=== PATIENT | female | born 1980 | race Caucasian/White ===

== ENCOUNTER 2018-08-02 08:37 | Emergency (ER) | payer OTHER ==
--- OUTSIDE RECORDS SUMMARY | 2018-08-02 08:39 | XMS REPORT ---
:1980 [facility] Address [address] [place] [address] Dr. Vogel [address] [place] [id number] Care Team Providers Name Role Phone Unavailable Unavailable Unavailable Problems This patient has no known problems. Allergies, Adverse Reactions, Alerts This patient has no known allergies or adverse reactions. Medications This patient has no known medications.
[2018-08-02 09:57] LABS: Absolute Lymphocytes (CBC) 1.6 K/uL (0.7-4.9); Absolute Monocytes 0.4 K/uL (0.1-1.3); Absolute Neutrophil 3.4 K/uL (1.8-8.0); Basophils % 0.6 % (0-1.3); Eosinophils % 1.7 % (0-4.4); Hematocrit 43.2 % (36.0-45.0); Lymphocytes % 28.7 % (15.3-44.8); MPV 6.7 fL (7.6-11.3); Monocytes % 6.7 % (3.3-12.3); RBC Red Blood Cell Count 4.71 M/uL (3.86-4.86)
[2018-08-02 10:11] LABS: Potassium 3.9 mmol/L (3.5-5.1)
--- NOTE | 2018-08-02 10:41 | ER ---
Nurse's Notes [facility] Name: Agnes Coffey Age: 38 yrs Sex: Female : 1980 Arrival Date: 08/02/2018 Time: 08:38 Bed 16 Private MD: Dominick Mejia Diagnosis: Cough;Cough variant asthma Presentation: 08/02 08:40 Method Of Arrival: Ambulatory aa5 08:40 Presenting complaint: Patient states: "I've had a cough for 12 weeks and I've already aa5 taken several rounds of steroids and antibiotics and I still have it". Pt states "I do have an appointment with a Photogrammetric Tech". Pt reports chest pressure today and SOB. Pt denies coughing blood. Pt states "sometimes I cough up slime and sometimes is clear". Transition of care: patient was not received from another setting of care. Onset of symptoms was 2017. Risk Assessment: Do you want to hurt yourself or someone else? Patient reports no desire to harm self or others. Initial Sepsis Screen: Does the patient meet any 2 criteria? No. Patient's initial sepsis screen is negative. Does the patient have a suspected source of infection? No. Patient's initial sepsis screen is negative. Care prior to arrival: None. 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 - Social history:: Smoking status: Patient/guardian denies using tobacco. - Ebola Screening: : No symptoms or risks identified at this time. - Family history:: not pertinent. - Hospitalizations: : No recent hospitalization is reported. Screenin:21 Abuse screen: Denies threats or abuse. Denies injuries from another. Nutritional jl7 screening: No deficits noted. Tuberculosis screening: No symptoms or risk factors identified. Fall Risk IV access (20 points). Total Lin Fall Scale indicates No Risk (0-24 pts). Assessment: 09:45 General: Appears in no apparent distress. uncomfortable, Behavior is calm, cooperative. jl7 Pain: Denies pain. Pain does not radiate. Pain began 12 weeks ago. Neuro: Level of Consciousness is awake, alert, obeys commands, Oriented to person, place, time, situation. Cardiovascular: Patient's skin is warm and dry. Respiratory: Reports cough that is since x12 weeks Airway is patent Respiratory effort is even, unlabored, Respiratory pattern is regular, symmetrical. GI: No deficits noted. : No deficits noted. EENT: No signs and/or symptoms were reported regarding the EENT system. Derm: Skin is pink, warm \\T\\ dry. Musculoskeletal: No signs and/or symptoms reported regarding the musculoskeletal system. 10:21 Reassessment: Pt refuses CT at this time, states "I just want the x-ray first and we'll jl7 go from there." ERD notified at this time. 11:30 Reassessment: Patient is alert, oriented x 3, equal unlabored respirations, skin aa5 warm/dry/pink. Vital Signs: 08:42 BP 140 / 91; Pulse 106; Resp 18 S; Temp 99.0(O); Pulse Ox 100% on R/A; Weight 69.4 kg aa5 (R); Height 5 ft. 1 in. (154.94 cm) (R); Pain 8/10; 08:42 Body Mass Index 28.91 (69.40 kg, 154.94 cm) aa5 ED Course: 08:38 Patient arrived in ED. mr 08:39 Dominick Mejia MD is Private Physician. mr 08:40 Arm band placed on Patient placed in an exam room, on a stretcher. aa5 08:51 Triage completed. aa5 08:58 Ariel Merino MD is Attending Physician. rn 09:00 EKG done, by hydrological technical officer. reviewed by Ariel Merino MD. at1 09:12 Junior Whitaker RN is Primary Nurse. jl7 10:00 Initial lab(s) drawn, by ri, sent to lab. Flu and/or RSV swab sent to lab. Inserted jl7 saline lock: 22 gauge in left antecubital area, using aseptic technique. Blood collected. Patient maintains SpO2 saturation greater than 95% on room air. 10:21 Patient has correct armband on for positive identification. Placed in gown. Bed in low jl7 position. Call light in reach. Side rails up X 1. Pulse ox on. NIBP on. Warm blanket given. 10:26 Radiology exam delayed due to PT REFUSING UNTIL THEY SEE HER CHEST XRAY BECAUSE SHE IS sj GOING TO A PULMONOLGIST ON TUESDAY. 10:42 X-ray completed. Patient tolerated procedure well. Patient moved to radiology Patient jb2 moved back from radiology. 10:44 XRAY Chest Pa And Lat (2 Views) In Process Unspecified. EDMS 11:30 No provider procedures requiring assistance completed. Patient did not have IV access aa5 during this emergency room visit. Administered Medications: No medications were administered Outcome: 10:41 Discharge ordered by MD. rn 11:30 Discharged to home ambulatory, with family. aa5 11:30 Condition: stable 11:30 Discharge instructions given to patient, Instructed on discharge instructions, follow up and referral plans. Demonstrated understanding of instructions, follow-up care. 11:35 Patient left the ED. aa5 Signatures: Dispatcher [employer] EDCO Anatoly Cindy Chambers, Gavino jb2 Charity Perdue Roman, MD MD rn Calderon, Audri, RN RN aa5 Celestina Arceo, bottom finisher EKG Tat1 Junior Whitaker RN RN jl7 Corrections: (The following items were deleted from the chart) 08:38 Presenting complaint: Patient states: "I've had a cough for 12 weeks and I've aa5 already taken several rounds of steroids and antibiotics and I still have it". Pt states "I do have an appointment with a Photogrammetric Tech". Pt reports chest pressure today and SOB. Pt denies coughing blood. Pt states "sometimes I cough up slime and sometimes is clear" aa5 08:37 Method Of Arrival: Ambulatory aa5 aa5 08:38 Transition of care: patient was not received from another setting of care. aa5 aa5 08:38 Onset of symptoms was 2018 aa5 aa5 08:38 Risk Assessment: Do you want to hurt yourself or someone else? Patient reports no aa5 desire to harm self or others. aa5 08:38 Care prior to arrival: None. 5 5 08:38 Initial Sepsis Screen: Does the patient meet any 2 criteria? No. Patient's [facility] initial sepsis screen is negative. Does the patient have a suspected source of infection? No. Patient's initial sepsis screen is negative. 5 08:38 Acuity: YUE 3 [place] [id number]
--- NOTE | 2018-08-02 10:42 | EDPHYS ---
Physician Documentation [facility] Name: Agnes Coffey Age: 38 yrs Sex: Female : 1980 Arrival Date: 08/02/2018 Time: 08:38 Bed 16 Private MD: Dominick Mejia ED Physician Ariel Merino HPI: 08/02 10:29 This 38 yrs old Female presents to ER via Ambulatory with complaints of Chest rn Tightness, Cough, Breathing Difficulty. 10:29 The patient or guardian reports chest pain that is located primarily in the substernal rn area. The patient or guardian reports chest pain that is located primarily in the chest diffusely. The pain does not radiate. Associated signs and symptoms: Pertinent positives: cough, recent travel, shortness of breath, Pertinent negatives: lower extremity pain. The chest pain is described as a pressure. Duration: The patient or guardian reports multiple episodes, that are intermittent. Modifying factors: The symptoms are alleviated by nothing. the symptoms are aggravated by cough. Severity of pain: At its worst the pain was moderate in the emergency department the pain is unchanged. The patient has experienced similar episodes in the past. 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 . 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 - Social history:: Smoking status: Patient/guardian denies using tobacco. - Ebola Screening: : No symptoms or risks identified at this time. - Family history:: not pertinent. - Hospitalizations: : No recent hospitalization is reported. ROS: 10:29 Constitutional: Negative for fever, chills, and weight loss, Eyes: Negative for injury, rn pain, redness, and discharge, Cardiovascular: Negative for palpitations, and edema, Respiratory: Negative for wheezing, and pleuritic chest pain, Abdomen/GI: Negative for abdominal pain, nausea, vomiting, diarrhea, and constipation, MS/Extremity: Negative for injury and deformity, Skin: Negative for injury, rash, and discoloration, Neuro: Negative for headache, weakness, numbness, tingling, and seizure. Exam: 10:29 Constitutional: This is a well developed, well nourished patient who is awake, alert, rn and in no acute distress Head/Face: Normocephalic, atraumatic. Eyes: Pupils equal round and reactive to light, extra-ocular motions intact. Lids and lashes normal. Conjunctiva and sclera are non-icteric and not injected. Cornea within normal limits. Periorbital areas with no swelling, redness, or edema. ENT: MMM, no stridor Cardiovascular: tachycardic, regular, no murmur Respiratory: Lungs have equal breath sounds bilaterally, clear to auscultation. No increased work of breathing, no retractions or nasal flaring. Skin: Warm, dry with normal turgor. Normal color with no rashes, no lesions, and no evidence of cellulitis. MS/ Extremity: Pulses equal, no cyanosis. Neurovascular intact. Full, normal range of motion. Equal circumference. Neuro: Awake and alert, GCS 15, oriented to person, place, time, and situation. Vital Signs: 08:42 BP 140 / 91; Pulse 106; Resp 18 S; Temp 99.0(O); Pulse Ox 100% on R/A; Weight 69.4 kg aa5 (R); Height 5 ft. 1 in. (154.94 cm) (R); Pain 8/10; 08:42 Body Mass Index 28.91 (69.40 kg, 154.94 cm) aa5 MDM: 08:58 Patient medically screened. rn 10:40 Differential diagnosis: acute pericarditis, anxiety, esophagitis, gastroesophageal rn reflux disease (GERD), pleurisy, pneumonia, pneumothorax, pulmonary embolus. Data reviewed: vital signs, nurses notes, lab test result(s), EKG, radiologic studies, plain films, and as a result, I will discharge patient. Counseling: I had a detailed discussion with the patient and/or guardian regarding: the historical points, exam findings, and any diagnostic results supporting the discharge/admit diagnosis, lab results, radiology results, the need for outpatient follow up, to return to the emergency department if symptoms worsen or persist or if there are any questions or concerns that arise at home. Refusal of service: The patient/guardian displays adequate decision making capability and despite a detailed discussion of alternatives, benefits, risks, and consequences refuses: CT Scan. ED course: Pt refuses ct scan to eval for PE despite me explaining twice that with recent trip, sinus tachycardia, and no response to steroids/abx, patinet declines, states has appt with pulm on Tuesday and wants to wait.. 08/02 09:06 Order name: CBC with Diff; Complete Time: 10:26 rn 08/02 09:06 Order name: Basic Metabolic Panel; Complete Time: 10:26 rn 08/02 09:06 Order name: Flu; Complete Time: 10:26 rn 08/02 09:06 Order name: XRAY Chest Pa And Lat (2 Views) rn 08/02 10:15 Order name: EKG Electrocardiogram [facility] 08/02 09:06 Order name: IV Start; Complete Time: 10:23 rn Administered Medications: No medications were administered Disposition: 08/02/18 10:41 Discharged to Home. Impression: Cough, Cough variant asthma. - Condition is Stable. - Discharge Instructions: Asthma, Adult, Cough, Adult. - Medication Reconciliation Form, Thank You Letter, Antibiotic Education, Prescription Opioid Use form. - Follow up: Private Physician; When: As needed; Reason: Recheck today's complaints, Re-evaluation by your physician. - Problem is an ongoing problem. - Symptoms are unchanged. Signatures: Dispatcher [employer] EDMS Ariel Merino MD MD rn Calderon, Audri, RN RN aa5 Corrections: (The following items were deleted from the chart) 11:27 09:06 Urine Test ordered. sagar jl7 11:35 10:41 08/02/2018 10:41 Discharged to Home. Impression: Cough; Cough variant asthma. aa5 Condition is Stable. Forms are Medication Reconciliation Form, Thank You Letter, Antibiotic Education, Prescription Opioid Use. Follow up: Private Physician; When: As needed; Reason: Recheck today's complaints, Re-evaluation by your physician. Problem is an ongoing problem. Symptoms are unchanged. rn
--- NOTE | 2018-08-02 10:47 | RAD REPORT ---
EXAM DESCRIPTION: RAD - Chest Pa And Lat (2 Views) - 08/02/2018 10:42 am CLINICAL HISTORY: Persistent cough COMPARISON: None. TECHNIQUE: PA and lateral views of the chest were obtained. FINDINGS: The lungs are clear. No peribronchial thickening seen. Lung markings are not outside of t he normal range. Heart size is normal and central vasculature is within normal limits. No pleural ef fusion or pneumothorax seen. No acute bony finding noted. No aortic abnormality. IMPRESSION: No acute cardiopulmonary process.
--- NOTE | 2018-08-02 13:25 | EKG ---
Test Date: 2018-08-02 Test Time: 08:54:17 Boat Wrapper: MIKE MEASUREMENT RESULTS: Intervals: Rate: 111 [place]: 130 QRSD: 76 QT: 332 QTc: 451 [place]: P: 40 [place]: 130 QRS: 58 T: 31 INTERPRETIVE STATEMENTS: Sinus tachycardia Otherwise normal ECG No previous ECG available for comparison Electronically Signed On 08-02-18 13:24:45 POLICE AIDE by Jadiel Wesley
== END 2018-08-02 11:35 | disposition home or self-care (01) ==
LOC: ER 08:37
DX: J45.991 Cough variant asthma (principal); F41.9 Anxiety disorder, unspecified; Z88.1 Allergy status to other antibiotic agents
CPT/HCPCS: 36415; 71046; 80048; 85025; 87804; 93005; 99284

== ENCOUNTER 2022-03-08 11:19 | Emergency (ER) | payer BC, OTHER ==
--- OUTSIDE RECORDS SUMMARY | 2022-03-08 11:24 | XMS REPORT | Continuity of Care Document ---
:1980 Author Organization [facility] t Address [address] [place] [address] Care Team Providers Name Role Phone Sha Olivarez MD Primary Care Physician [phone] Dee Dee Pena Attending Clinician Unavailable Therapy, [facility] Attending Clinician Unavailable Kevin Lenz MD Attending Clinician KEVIN LENZ Attending Clinician Unavailable Doctor Unassigned, [place] Attending Clinician Unavailable Sha Olivarez MD Attending Clinician SHA OLIVAREZ Attending Clinician Unavailable Provider, [facility] Attending Clinician Unavailable Jessica Pineda Attending Clinician JESSICA GAMBOA Attending Clinician Unavailable Neha Adame Attending Clinician Dee Dee Pena Admitting Clinician Unavailable Payers Payer Name Policy Type Policy Number Effective Date Expiration Date Adelita [facility] [id number] 2018 00:00:00 Problems Condition Condition Condition Status Onset Resolution Last Treating Co mments Source Name Details Category Date Date Treatment Clinician Date Gross Gross Disease Active [facility] hematuria hematuria 3-18 ity of 00:00: [place] 00 Medical Branch Anxiety Anxiety Disease Active [facility] 6-27 ity of 00:00: [place] 00 [facility] Acne Acne Disease Active [facility] vulgaris vulgaris 6-27 ity of 00:00: [place] 00 Medical Branch Acne Acne Disease Active [facility] vulgaris vulgaris 6-27 ity of 00:00: [place] 00 [facility] Branch 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 [facility] intermitte intermitte 1-25 it y of nt asthma nt asthma 00:[place] [facility] Knee pain, Knee pain, Disease Active 2014-07 U nivers chronic, chronic, 1-25 ity of left left 00:00: [place] 00 Medical Branch Nonintract Nonintract Disease Active 2014-07 U nivers able able 1-25 ity of migraine migraine 00:00: [place] 00 Medical Branch Gastroesop Gastroesop Disease Active 2014-07 U nivers hageal hageal 1-25 ity of reflux reflux 00:00: [place] disease disease 00 Medical without without Branch esophagiti esophagiti s s Allergies, Adverse Reactions, Alerts Allergy Allergy Status Severity Reaction(s) Onset Inactive Treating Comm ents Source Name Type Date Date Clinician Amoxicil Propensi Active Itching Unive rs tamie ty to 1-25 ity of adverse 00:00: [place] reaction 00 Medical s Branch AMOXICIL DRUG Active ITCHING Univers TAMIE INGREDI 1-25 ity of 00:00: [place] 00 Medical Branch Cefuroxi Propensi Active Unknown - 2014-07 Uni vers me ty to See comments 1-17 ity of Axetil adverse 00:00: [place] reaction 00 Medical s Branch CEFUROXI DRUG Active Unknown-Cmnt 2014-07 Un guero ME INGREDI 1-17 ity of AXETIL 00:00: [place] 00 [facility] Branch cefuroxi DA Active [place] [facility]- [facility] [place] Cephalex DA Active [place] RASH [facility] Mon[facility]ydr 00:[facility]: [facility] [place] Social History Social Habit Start Date Stop Date Quantity Comments Source Exposure to Yes [facility] SARS-CoV-2 (event) Medica l Branch Alcohol intake 2020-08-18 2020-08-18 0 /d [facility] 00:00:00 00:00:00 Medical Branch Tobacco use and 2015-06-18 2015-06-18 Never used [facility] exposure 00:00:00 00:00:00 Medical Branch Sex [birth year] [facility] 00:00:00 00:00:00 Medical Branch Smoking Status Start Date Stop Date Source Never smoker [facility] Branch Medications Ordered Filled Start Stop Current Ordering Indication Dosage Frequency Signature Comments Components Source Medication Medication Date Date Medication? Clinician (SIG) Name Name brittani 2021- No [id number] 500mg 500 mg, IV Univers (XEVUDY) 08-22 Infusion, ity o f 500 mg in 16:30: 16:01 ONCE, [place] NaCl 0.9% 00 :00 Administer Medi maddi (NS) 50 mL over 30 Branch MINI-BAG Minutes, On 08/22/21 at 1030, For [address] able 24 hours refrigerat ed or 6 hours at room temperatur e including transporta tion and infusion time.
ketorolac Yes [id number] 10mg Take 1 U nivers 10 mg 3-18 tablet by ity of tablet 00:00: mouth [place] 00 every 6 Medical (six) Branch hours as needed (pain). ketorolac Yes [id number] 10mg Take 1 U nivers 10 mg 3-18 tablet by ity of tablet 00:00: mouth [place] 00 every 6 Medical (six) Branch hours as needed (pain). ketorolac 2020-0 Yes [id number] 10mg Take 1 U nivers 10 mg 3-18 tablet by ity of tablet 00:00: mouth [place] 00 every 6 Medical (six) Branch hours as needed (pain). ketorolac 2020-0 Yes [id number] 10mg Take 1 U nivers 10 mg 3-18 tablet by ity of tablet 00:00: mouth [place] 00 every 6 Medical (six) Branch hours as needed (pain). ketorolac 2020-0 Yes [id number] 10mg Take 1 U nivers 10 mg 3-18 tablet by ity of tablet 00:00: mouth [place] 00 every 6 Medical (six) Branch hours as needed (pain). ketorolac 2020-0 Yes 10mg Take 1 U nivers 10 mg 3-18 tablet by ity of tablet 00:00: mouth [place] 00 every 6 Medical (six) Branch hours as needed (pain). ketorolac 2020-0 Yes [id number] 10mg Take 1 U nivers 10 mg 3-18 tablet by ity of tablet 00:00: mouth [place] 00 every 6 Medical (six) Branch hours as needed (pain). ketorolac 2020-0 Yes [id number] 10mg Take 1 U nivers 10 mg 3-18 tablet by ity of tablet 00:00: mouth [place] 00 every 6 Medical (six) Branch hours as needed (pain). ketorolac 2020-0 Yes 10mg Take 1 U nivers 10 mg 3-18 tablet by ity of tablet 00:00: mouth [place] 00 every 6 Medical (six) Branch hours as needed (pain). dicyclomine 2020- No 20mg 20 mg, Uni vers (BENTYL) 08-01 Intramuscu ity of injection 22:45: 10:44 lar, ONCE [place] 20 mg 00 :00 NOW, 1 Medical dose, Fri Branch 08/01/20 at 1645, ZACARIAS metoclopram 2020- No 10mg 10 mg, Uni vers pk HCl 08-01 Slow IV ity of (REGLAN) 21:20: 21:21 Push, [place] injection 00 :00 ONCE, 1 Medical 10 mg dose, Fri Branch 08/01/20 at 1530, ZACARIAS iohexol 2020- No 120mL 120 mL, Unive rs (OMNIPAQUE 08-01 Intravenou it y of 350 21:15: 20:56 s, ONCE, 1 [place] BULK-150 00 :00 dose, Fri Medica l mL) 08/01/20 at Branch injection 1515, 120 mL Routine ondansetron 2020- No 4mg 4 mg, Slow Univers (ZOFRAN 08-01 IV Push, ity of (PF)) 21:15: 20:24 ONCE, 1 [place] injection 4 00 :00 dose, Fri Med ical mg 08/01/20 at Branch 1515, ZACARIAS ketorolac 2020-0 2020- No 30mg 30 mg, Unive rs (TORADOL) 08-01 Slow IV ity of injection 21:15: 20:25 Push, [place] 30 mg 00 :00 ONCE, 1 Medical dose, Fri Branch 08/01/20 at 1515, ZACARIAS
Fa culty member approving Restricted medication : EMERGENCY ROOM, NaCl 0.9% 2020- No 1000mL at 999 Uni vers (NS) bolus 08-0108 mL/hr, ity of infusion 20:15: 22:30 1,000 mL, [place] as 1,000 mL 00 :00 IV Medical Infusion, Branch ONCE, 1 dose, 08/01/20 at 1415, ZACARIAS dicyclomine 2020-0 Yes [id number] 20mg Take 1 Univers 20 mg 1-08 tablet by ity of tablet 00:00: mouth 4 [place] 00 (four) Medical times Branch daily as needed for Abdominal pain. ondansetron 2020-0 Yes [id number] 4mg Take 1 Univers (ZOFRAN 1-08 tablet by ity of ODT) 4 mg 00:00: mouth [place] disintegrat 00 every 8 Medic al ing tablet (eight) Branch hours as needed for Nausea and Vomiting (N/V). ketorolac 2020-0 Yes [id number] 10mg Take 1 U nivers 10 mg 1-08 tablet by ity of tablet 00:00: mouth [place] 00 every 6 Medical (six) Branch hours as needed for Pain (scale 7-10). dicyclomine 2020-0 Yes [id number] 20mg Take 1 Univers 20 mg 1-08 tablet by ity of tablet 00:00: mouth 4 [place] 00 (four) Medical times Branch daily as needed for Abdominal pain. ondansetron 2021-0 Yes [id number] 4mg Take 1 Univers (ZOFRAN 1-08 tablet by ity of ODT) 4 mg 00:00: mouth [place] disintegrat 00 every 8 Medic al ing tablet (eight) Branch hours as needed for Nausea and Vomiting (N/V). ketorolac 2021-0 Yes [id number] 10mg Take 1 U nivers 10 mg 1-08 tablet by ity of tablet 00:00: mouth [place] 00 every 6 Medical (six) Branch hours as needed for Pain (scale 7-10). dicyclomine 2021-0 Yes [id number] 20mg Take 1 Univers 20 mg 1-08 tablet by ity of tablet 00:00: mouth 4 [place] 00 (four) Medical times Branch daily as needed for Abdominal pain. ondansetron 2021-0 Yes [id number] 4mg Take 1 Univers (ZOFRAN 1-08 tablet by ity of ODT) 4 mg 00:00: mouth [place] disintegrat 00 every 8 Medic al ing tablet (eight) Branch hours as needed for Nausea and Vomiting (N/V). ketorolac 2021-0 Yes [id number] 10mg Take 1 U nivers 10 mg 1-08 tablet by ity of tablet 00:00: mouth [place] 00 every 6 Medical (six) Branch hours as needed for Pain (scale 7-10). dicyclomine 2021-0 Yes [id number] 20mg Take 1 Univers 20 mg 1-08 tablet by ity of tablet 00:00: mouth 4 [place] 00 (four) Medical times Branch daily as needed for Abdominal pain. ondansetron 2021-0 Yes [id number] 4mg Take 1 Univers (ZOFRAN 1-08 tablet by ity of ODT) 4 mg 00:00: mouth [place] disintegrat 00 every 8 Medic al ing tablet (eight) Branch hours as needed for Nausea and Vomiting (N/V). ketorolac 2021-0 Yes [id number] 10mg Take 1 U nivers 10 mg 1-08 tablet by ity of tablet 00:00: mouth [place] 00 every 6 Medical (six) Branch hours as needed for Pain (scale 7-10). dicyclomine 2021-0 Yes [id number] 20mg Take 1 Univers 20 mg 1-08 tablet by ity of tablet 00:00: mouth 4 [place] 00 (four) Medical times Branch daily as needed for Abdominal pain. ondansetron 2021-0 Yes [id number] 4mg Take 1 Univers (ZOFRAN 1-08 tablet by ity of ODT) 4 mg 00:00: mouth [place] disintegrat 00 every 8 Medic al ing tablet (eight) Branch hours as needed for Nausea and Vomiting (N/V). dicyclomine 2021-0 Yes [id number] 20mg Take 1 Univers 20 mg 1-08 tablet by ity of tablet 00:00: mouth 4 [place] 00 (four) Medical times Branch daily as needed for Abdominal pain. ondansetron 2021-0 Yes [id number] 4mg Take 1 Univers (ZOFRAN 1-08 tablet by ity of ODT) 4 mg 00:00: mouth [place] disintegrat 00 every 8 Medic al ing tablet (eight) Branch hours as needed for Nausea and Vomiting (N/V). dicyclomine 2021-0 Yes [id number] 20mg Take 1 Univers 20 mg 1-08 tablet by ity of tablet 00:00: mouth 4 [place] 00 (four) Medical times Branch daily as needed for Abdominal pain. ondansetron 2021-0 Yes [id number] 4mg Take 1 Univers (ZOFRAN 1-08 tablet by ity of ODT) 4 mg 00:00: mouth [place] disintegrat 00 every 8 Medic al ing tablet (eight) Branch hours as needed for Nausea and Vomiting (N/V). dicyclomine 1-0 Yes [id number] 20mg Take 1 Univers 20 mg 1-08 tablet by ity of tablet 00:00: mouth 4 [place] 00 (four) Medical times Branch daily as needed for Abdominal pain. ondansetron 2021-0 Yes [id number] 4mg Take 1 Univers (ZOFRAN 1-08 tablet by ity of ODT) 4 mg 00:00: mouth [place] disintegrat 00 every 8 Medic al ing tablet (eight) Branch hours as needed for Nausea and Vomiting (N/V). dicyclomine 2021-0 Yes [id number] 20mg Take 1 [facility] 20 mg 1-08 tablet by ity of tablet 00:00: mouth 4 [place] 00 (four) Medical times Branch daily as needed for Abdominal pain. ondansetron 2021-0 Yes [id number] 4mg Take 1 Univers (ZOFRAN 1-08 tablet by ity of ODT) 4 mg 00:00: mouth [place] disintegrat 00 every 8 Medic al ing tablet (eight) Branch hours as needed for Nausea and Vomiting (N/V). dicyclomine 2021-0 Yes [id number] 20mg Take 1 Univers 20 mg 1-08 tablet by ity of tablet 00:00: mouth 4 [place] 00 (four) Medical times Branch daily as needed for Abdominal pain. ondansetron 2021-0 Yes [id number] 4mg Take 1 Univers (ZOFRAN 1-08 tablet by ity of ODT) 4 mg 00:00: mouth [place] disintegrat 00 every 8 Medic al ing tablet (eight) Branch hours as needed for Nausea and Vomiting (N/V). dicyclomine 2021-0 Yes [id number] 20mg Take 1 Univers 20 mg 1-08 tablet by ity of tablet 00:00: mouth 4 [place] 00 (four) Medical times Branch daily as needed for Abdominal pain. ondansetron 2021-0 Yes [id number] 4mg Take 1 Univers (ZOFRAN 1-08 tablet by ity of ODT) 4 mg 00:00: mouth [place] disintegrat 00 every 8 Medic al ing tablet (eight) Branch hours as needed for Nausea and Vomiting (N/V). dicyclomine 2021-0 Yes [id number] 20mg Take 1 Univers 20 mg 1-08 tablet by ity of tablet 00:00: mouth 4 [place] 00 (four) Medical times Branch daily as needed for Abdominal pain. ondansetron 2021-0 Yes [id number] 4mg Take 1 Univers (ZOFRAN 1-08 tablet by ity of ODT) 4 mg 00:00: mouth [place] disintegrat 00 every 8 Medic al ing tablet (eight) Branch hours as needed for Nausea and Vomiting (N/V). dicyclomine 2021-0 Yes [id number] 20mg Take 1 Univers 20 mg 1-08 tablet by ity of tablet 00:00: mouth 4 [place] 00 (four) Medical times Branch daily as needed for Abdominal pain. ondansetron 2021-0 Yes [id number] 4mg Take 1 Univers (ZOFRAN 1-08 tablet by ity of ODT) 4 mg 00:00: mouth [place] disintegrat 00 every 8 Medic al ing tablet (eight) Branch hours as needed for Nausea and Vomiting (N/V). dicyclomine 2021-0 Yes [id number] 20mg Take 1 Univers 20 mg 1-08 tablet by ity of tablet 00:00: mouth 4 [place] 00 (four) Medical times Branch daily as needed for Abdominal pain. ondansetron 2021-0 Yes [id number] 4mg Take 1 Univers (ZOFRAN 1-08 tablet by ity of ODT) 4 mg 00:00: mouth [place] disintegrat 00 every 8 Medic al ing tablet (eight) Branch hours as needed for Nausea and Vomiting (N/V). ketorolac 2020-0 Yes [id number] 10mg Take 1 U nivers 10 mg 1-08 tablet by ity of tablet 00:00: [facility] 00 every 6 Medical (six) Branch hours as needed for Pain (scale 7-10). ketorolac 0 2021- No [id number] 10mg Take 1 Univers 10 mg 1-08 03-18 tablet by ity of tablet 00:00: 00:00 mouth [place] 00 :00 every 6 Medical (six) Branch hours as needed for Pain (scale 7-10). DULOXETINE 2020-0 Yes [id number] 60mg TAKE 1 Univers 60 mg 7-29 CAPSULE BY ity of capsule 00:00: [facility] DAILY Medical Branch DULOXETINE 2020-0 Yes [id number] 60mg TAKE 1 Univers 60 mg 7-29 CAPSULE BY ity of capsule 00:00: [facility] DAILY Medical Branch DULOXETINE 2020-0 Yes [id number] 60mg TAKE 1 Univers 60 mg 7-29 CAPSULE BY ity of capsule 00:00: [facility] DAILY Medical Branch DULOXETINE 2020-0 Yes [id number] 60mg TAKE 1 Univers 60 mg 7-29 CAPSULE BY ity of capsule 00:00: [facility] DAILY Medical Branch DULOXETINE 2020-0 Yes [id number] 60mg TAKE 1 Univers 60 mg 7-29 CAPSULE BY ity of capsule 00:00: [facility] DAILY Medical Branch DULOXETINE 2020-0 Yes [id number] 60mg TAKE 1 Univers 60 mg 7-29 CAPSULE BY ity of capsule 00:00: [facility] DAILY Medical Branch DULOXETINE 2020-0 Yes [id number] 60mg TAKE 1 Univers 60 mg 7-29 CAPSULE BY ity of capsule 00:00: [facility] DAILY Medical Branch DULOXETINE 2020-0 Yes [id number] 60mg TAKE 1 Univers 60 mg 7-29 CAPSULE BY ity of capsule 00:00: [facility] DAILY Medical Branch DULOXETINE 2020-0 Yes [id number] 60mg TAKE 1 Univers 60 mg 7-29 CAPSULE BY ity of capsule 00:00: [facility] DAILY Medical Branch DULOXETINE 2020-0 Yes [id number] 60mg TAKE 1 Univers 60 mg 7-29 CAPSULE BY ity of capsule 00:00: MOUTH [place] 00 DAILY Medical Branch DULOXETINE 2020-0 Yes [id number] 60mg TAKE 1 Univers 60 mg 7-29 CAPSULE BY ity of capsule 00:00: MOUTH [place] 00 DAILY Medical Branch DULOXETINE 2020-0 Yes [id number] 60mg TAKE 1 Univers 60 mg 7-29 CAPSULE BY ity of capsule 00:00: MOUTH [place] 00 DAILY Medical Branch DULOXETINE 2020-0 Yes [id number] 60mg TAKE 1 Univers 60 mg 7-29 CAPSULE BY ity of capsule 00:00: MOUTH [place] 00 DAILY Medical Branch DULOXETINE 2020-0 Yes [id number] 60mg TAKE 1 Univers 60 mg 7-29 CAPSULE BY ity of capsule 00:00: MOUTH [place] 00 DAILY Medical Branch DULOXETINE 2020-0 Yes [id number] 60mg TAKE 1 Univers 60 mg 7-29 CAPSULE BY ity of capsule 00:00: MOUTH [place] 00 DAILY Medical Branch DULOXETINE 2020-0 Yes [id number] 60mg TAKE 1 Univers 60 mg 7-29 CAPSULE BY ity of capsule 00:00: MOUTH [place] 00 DAILY Medical Branch DULOXETINE 2020-0 Yes [id number] 60mg TAKE 1 Univers 60 mg 7-29 CAPSULE BY ity of capsule 00:00: MOUTH [place] 00 DAILY Medical Branch DULOXETINE 2020-0 Yes [id number] 60mg TAKE 1 Univers 60 mg 7-29 CAPSULE BY ity of capsule 00:00: MOUTH [place] 00 DAILY Medical Branch topiramate 2018- Yes [id number] 150mg Take 150 Univers (QUDEXY XR) 2-20 mg by ity of 150 mg CSpX 00:00: mouth [place] 00 daily. Medical Branch BUPROPION 2018- Yes [id number] TAKE 1 U nivers SR 150 mg 2-20 TABLET BY ity o f SR tablet 00:00: MOUTH [place] 00 TWICE Medical DAILY Branch hydrocortis 2018- Yes [id number] Insert Univers one 2-20 into ity of (PROCTOSOL 00:00: rectum 2 [place] [facility] HC) 2.5 % 00 (two) Medical rectal times Branch cream daily. topiramate 2018-07 Yes [id number] 150mg Take 150 Univers (QUDEXY XR) 2-20 mg by ity of 150 mg CSpX 00:00: mouth [place] 00 daily. Medical Branch BUPROPION 2018-07 Yes [id number] TAKE 1 U nivers SR 150 mg 2-20 TABLET BY ity o f SR tablet 00:00: MOUTH [place] 00 TWICE Medical DAILY Branch hydrocortis 2018-07 Yes [id number] Insert Univers one 2-20 into ity of (PROCTOSOL 00:00: rectum 2 [place] [facility] HC) 2.5 % 00 (two) Medical rectal times Branch cream daily. topiramate 2018-07 Yes [id number] 150mg Take 150 Univers (QUDEXY XR) 2-20 mg by ity of 150 mg CSpX 00:00: mouth [place] 00 daily. Medical Branch BUPROPION 2018-07 Yes [id number] TAKE 1 U nivers SR 150 mg 2-20 TABLET BY ity o f SR tablet 00:00: MOUTH [place] 00 TWICE Medical DAILY Branch hydrocortis 2018-07 Yes [id number] Insert Univers one 2-20 into ity of (PROCTOSOL 00:00: rectum 2 [place] HC) 2.5 % 00 (two) Medical rectal times Branch cream daily. topiramate 2018-07 Yes [id number] 150mg Take 150 Univers (QUDEXY XR) 2-20 mg by ity of 150 mg CSpX 00:00: mouth [place] 00 daily. Medical Branch BUPROPION 2018-07 Yes [id number] TAKE 1 U nivers SR 150 mg 2-20 TABLET BY ity o f SR tablet 00:00: MOUTH [place] 00 TWICE Medical DAILY Branch hydrocortis 2018-07 Yes [id number] Insert Univers one 2-20 into ity of (PROCTOSOL 00:00: rectum 2 [place] [facility] HC) 2.5 % 00 (two) Medical rectal times Branch cream daily. topiramate 2018-07 Yes [id number] 150mg Take 150 Univers (QUDEXY XR) 2-20 mg by ity of 150 mg CSpX 00:00: mouth [place] 00 daily. Medical Branch BUPROPION 2018-07 Yes [id number] TAKE 1 U nivers SR 150 mg 2-20 TABLET BY ity o f SR tablet 00:00: MOUTH [place] 00 TWICE Medical DAILY Branch hydrocortis 2018-07 Yes [id number] Insert Univers one 2-20 into ity of (PROCTOSOL 00:00: rectum 2 [place] HC) 2.5 % 00 (two) Medical rectal times Branch cream daily. topiramate 2018-07 Yes [id number] 150mg Take 150 Univers (QUDEXY XR) 2-20 mg by ity of 150 mg CSpX 00:00: mouth [place] 00 daily. Medical Branch BUPROPION 2018-07 Yes [id number] TAKE 1 U nivers SR 150 mg 2-20 TABLET BY ity o f SR tablet 00:00: MOUTH [place] 00 TWICE Medical DAILY Branch hydrocortis 2018-07 Yes [id number] Insert [facility] one 2-20 into ity of (PROCTOSOL 00:00: rectum 2 [place] HC) 2.5 % 00 (two) Medical rectal times Branch cream daily. topiramate 2018-07 Yes [id number] 150mg Take 150 Univers (QUDEXY XR) 2-20 mg by ity of 150 mg CSpX 00:00: mouth [place] 00 daily. Medical Branch BUPROPION 2018-07 Yes [id number] TAKE 1 U nivers SR 150 mg 2-20 TABLET BY ity o f SR tablet 00:00: MOUTH [place] 00 TWICE Medical DAILY Branch hydrocortis 2018-07 Yes [id number] Insert [facility] one 2-20 into ity of (PROCTOSOL 00:00: rectum 2 [place] HC) 2.5 % 00 (two) Medical rectal times Branch cream daily. topiramate 2018-07 Yes [id number] 150mg Take 150 Univers (QUDEXY XR) 2-20 mg by ity of 150 mg CSpX 00:00: mouth [place] 00 daily. Medical Branch BUPROPION 2018-07 Yes [id number] TAKE 1 U nivers SR 150 mg 2-20 TABLET BY ity o f SR tablet 00:00: MOUTH [place] 00 TWICE Medical DAILY Branch hydrocortis 2018-07 Yes [id number] Insert [facility] one 2-20 into ity of (PROCTOSOL 00:00: rectum 2 [place] HC) 2.5 % 00 (two) Medical rectal times Branch cream daily. topiramate 2018-07 Yes [id number] 150mg Take 150 Univers (QUDEXY XR) 2-20 mg by ity of 150 mg CSpX 00:00: mouth [place] 00 daily. Medical Branch BUPROPION 2018-07 Yes [id number] TAKE 1 U nivers SR 150 mg 2-20 TABLET BY ity o f SR tablet 00:00: MOUTH [place] 00 TWICE Medical DAILY Branch hydrocortis 2018-07 Yes [id number] Insert [facility] one 2-20 into ity of (PROCTOSOL 00:00: rectum 2 [place] [facility] HC) 2.5 % 00 (two) Medical rectal times Branch cream daily. topiramate 2018-07 Yes [id number] 150mg Take 150 Univers (QUDEXY XR) 2-20 mg by ity of 150 mg CSpX 00:00: mouth [place] 00 daily. Medical Branch BUPROPION 2018-07 Yes [id number] TAKE 1 U nivers SR 150 mg 2-20 TABLET BY ity o f SR tablet 00:00: MOUTH [place] 00 TWICE Medical DAILY Branch hydrocortis 2018-07 Yes [id number] Insert [facility] one 2-20 into ity of (PROCTOSOL 00:00: rectum 2 [place] HC) 2.5 % 00 (two) Medical rectal times Branch cream daily. topiramate 2018-07 Yes [id number] 150mg Take 150 Univers (QUDEXY XR) 2-20 mg by ity of 150 mg CSpX 00:00: mouth [place] 00 daily. Medical Branch BUPROPION 2018-07 Yes [id number] TAKE 1 U nivers SR 150 mg 2-20 TABLET BY ity o f SR tablet 00:00: MOUTH [place] 00 TWICE Medical DAILY Branch hydrocortis 2018-07 Yes [id number] Insert [facility] one 2-20 into ity of (PROCTOSOL 00:00: rectum 2 [place] HC) 2.5 % 00 (two) Medical rectal times Branch cream daily. topiramate 2018-07 Yes [id number] 150mg Take 150 Univers (QUDEXY XR) 2-20 mg by ity of 150 mg CSpX 00:00: mouth [place] 00 daily. Medical Branch BUPROPION 2018-07 Yes [id number] TAKE 1 U nivers SR 150 mg 2-20 TABLET BY ity o f SR tablet 00:00: MOUTH [place] 00 TWICE Medical DAILY Branch hydrocortis 2018-07 Yes [id number] Insert [facility] one 2-20 into ity of (PROCTOSOL 00:00: rectum 2 [place] HC) 2.5 % 00 (two) Medical rectal times Branch cream daily. topiramate 2018-07 Yes [id number] 150mg Take 150 Univers (QUDEXY XR) 2-20 mg by ity of 150 mg CSpX 00:00: mouth [place] 00 daily. Medical Branch BUPROPION 2018-07 Yes [id number] TAKE 1 U nivers SR 150 mg 2-20 TABLET BY ity o f SR tablet 00:00: MOUTH [place] 00 TWICE Medical DAILY Branch hydrocortis 2018-07 Yes [id number] Insert [facility] one 2-20 into ity of (PROCTOSOL 00:00: rectum 2 [place] HC) 2.5 % 00 (two) Medical rectal times Branch cream daily. topiramate 2018-07 Yes [id number] 150mg Take 150 Univers (QUDEXY XR) 2-20 mg by ity of 150 mg CSpX 00:00: mouth [place] 00 daily. Medical Branch BUPROPION 2018-07 Yes [id number] TAKE 1 U nivers SR 150 mg 2-20 TABLET BY ity o f SR tablet 00:00: MOUTH [place] 00 TWICE Medical DAILY Branch hydrocortis 2018-07 Yes [id number] Insert [facility] one 2-20 into ity of (PROCTOSOL 00:00: rectum 2 [place] HC) 2.5 % 00 (two) Medical rectal times Branch cream daily. topiramate 2018-07 Yes [id number] 150mg Take 150 Univers (QUDEXY XR) 2-20 mg by ity of 150 mg CSpX 00:00: mouth [place] 00 daily. Medical Branch BUPROPION 2018-07 Yes [id number] TAKE 1 U nivers SR 150 mg 2-20 TABLET BY ity o f SR tablet 00:00: MOUTH [place] 00 TWICE Medical DAILY Branch hydrocortis 2018-07 Yes [id number] Insert [facility] one 2-20 into ity of (PROCTOSOL 00:00: rectum 2 [place] [facility] HC) 2.5 % 00 (two) Medical rectal times Branch cream daily. topiramate 2018-07 Yes [id number] 150mg Take 150 Univers (QUDEXY XR) 2-20 mg by ity of 150 mg CSpX 00:00: mouth [place] 00 daily. Medical Branch BUPROPION 2018-07 Yes [id number] TAKE 1 U nivers SR 150 mg 2-20 TABLET BY ity o f SR tablet 00:00: MOUTH [place] 00 TWICE Medical DAILY Branch hydrocortis 2018-07 Yes [id number] Insert [facility] one 2-20 into ity of (PROCTOSOL 00:00: rectum 2 [place] [facility] HC) 2.5 % 00 (two) Medical rectal times Branch cream daily. topiramate 2018-07 Yes [id number] 150mg Take 150 Univers (QUDEXY XR) 2-20 mg by ity of 150 mg CSpX 00:00: mouth [place] 00 daily. Medical Branch BUPROPION 2018-07 Yes [id number] TAKE 1 U nivers SR 150 mg 2-20 TABLET BY ity o f SR tablet 00:00: MOUTH [place] 00 TWICE Medical DAILY Branch hydrocortis 2018-07 Yes [id number] Insert [facility] one 2-20 into ity of (PROCTOSOL 00:00: rectum 2 [place] [facility] HC) 2.5 % 00 (two) Medical rectal times Branch cream daily. topiramate 2018-07 Yes [id number] 150mg Take 150 Univers (QUDEXY XR) 2-20 mg by ity of 150 mg CSpX 00:00: mouth [place] 00 daily. Medical Branch BUPROPION 2018-07 Yes [id number] TAKE 1 U nivers SR 150 mg 2-20 TABLET BY ity o f SR tablet 00:00: MOUTH [place] 00 TWICE Medical DAILY Branch hydrocortis 2018-07 Yes [id number] Insert [facility] one 2-20 into ity of (PROCTOSOL 00:00: rectum 2 [place] [facility] HC) 2.5 % 00 (two) Medical rectal times Branch cream daily. DULoxetine Yes [id number] 60mg Take 1 U nivers 60 mg 7- capsule by ity of capsule 00:00: mouth [place] 00 daily. Medical Branch DULoxetine 2020- No [id number] 60mg Take 1 Univers 60 mg 7-07 31- capsule by ity of capsule 00:00: 00:00 mouth [place] 00 :00 daily. Medical Branch albuterol 2017-07 Yes [id number] 2{puff} Inhale 2 Univers 90 2-07 Puffs ity of mcg/actuati 00:00: every 6 [facility] as on inhaler 00 (six) Medical hours as Branch needed for Wheezing or Shortness of Breath. albuterol 2017-07 Yes [id number] 2{puff} Inhale 2 Univers 90 2-07 Puffs ity of mcg/actuati 00:00: every 6 Jalen as on inhaler 00 (six) Medical hours as Branch needed for Wheezing or Shortness of Breath. albuterol 2017-07 Yes [id number] 2{puff} Inhale 2 Univers 90 2-07 Puffs ity of mcg/actuati 00:00: every 6 Jalen as on inhaler 00 (six) Medical hours as Branch needed for Wheezing or Shortness of Breath. albuterol 2017-07 Yes [id number] 2{puff} Inhale 2 Univers 90 2-07 Puffs ity of mcg/actuati 00:00: every 6 Jalen as on inhaler 00 (six) Medical hours as Branch needed for Wheezing or Shortness of Breath. albuterol 2017-07 Yes [id number] 2{puff} Inhale 2 Univers 90 2-07 Puffs ity of mcg/actuati 00:00: every 6 Jalen as on inhaler 00 (six) Medical hours as Branch needed for Wheezing or Shortness of Breath. albuterol 2017-07 Yes [id number] 2{puff} Inhale 2 Univers 90 2-07 Puffs ity of mcg/actuati 00:00: every 6 Jalen as on inhaler 00 (six) Medical hours as Branch needed for Wheezing or Shortness of Breath. albuterol 2017-07 Yes [id number] 2{puff} Inhale 2 Univers 90 2-07 Puffs ity of mcg/actuati 00:00: every 6 Jalen as on inhaler 00 (six) Medical hours as Branch needed for Wheezing or Shortness of Breath. albuterol 2017-07 Yes [id number] 2{puff} Inhale 2 Univers 90 2-07 Puffs ity of mcg/actuati 00:00: every 6 Jalen as on inhaler 00 (six) Medical hours as Branch needed for Wheezing or Shortness of Breath. albuterol 2017-07 Yes [id number] 2{puff} Inhale 2 Univers 90 2-07 Puffs ity of mcg/actuati 00:00: every 6 Jalen as on inhaler 00 (six) Medical hours as Branch needed for Wheezing or Shortness of Breath. albuterol 2017-07 Yes [id number] 2{puff} Inhale 2 Univers 90 2-07 Puffs ity of mcg/actuati 00:00: every 6 Jalen as on inhaler 00 (six) Medical hours as Branch needed for Wheezing or Shortness of Breath. albuterol 2017-07 Yes [id number] 2{puff} Inhale 2 Univers 90 2-07 Puffs ity of mcg/actuati 00:00: every 6 Jalen as on inhaler 00 (six) Medical hours as Branch needed for Wheezing or Shortness of Breath. albuterol 2017-07 Yes [id number] 2{puff} Inhale 2 Univers 90 2-07 Puffs ity of mcg/actuati 00:00: every 6 Jalen as on inhaler 00 (six) Medical hours as Branch needed for Wheezing or Shortness of Breath. albuterol 2017-07 Yes [id number] 2{puff} Inhale 2 Univers 90 2-07 Puffs ity of mcg/actuati 00:00: every 6 Jalen as on inhaler 00 (six) Medical hours as Branch needed for Wheezing or Shortness of Breath. albuterol 2017-07 Yes [id number] 2{puff} Inhale 2 Univers 90 2-07 Puffs ity of mcg/actuati 00:00: every 6 Jalen as on inhaler 00 (six) Medical hours as Branch needed for Wheezing or Shortness of Breath. albuterol 2017-07 Yes [id number] 2{puff} Inhale 2 Univers 90 2-07 Puffs ity of mcg/actuati 00:00: every 6 Jalen as on inhaler 00 (six) Medical hours as Branch needed for Wheezing or Shortness of Breath. albuterol 2017-07 Yes [id number] 2{puff} Inhale 2 Univers 90 2-07 Puffs ity of mcg/actuati 00:00: every 6 Jalen as on inhaler 00 (six) Medical hours as Branch needed for Wheezing or Shortness of Breath. albuterol 2017-07 Yes [id number] 2{puff} Inhale 2 Univers 90 2-07 Puffs ity of mcg/actuati 00:00: every 6 Jalen as on inhaler 00 (six) Medical hours as Branch needed for Wheezing or Shortness of Breath. albuterol 2017-07 Yes [id number] 2{puff} Inhale 2 Univers 90 2-07 Puffs ity of mcg/actuati 00:00: every 6 Jalen as on inhaler 00 (six) Medical hours as Branch needed for Wheezing or Shortness of Breath. albuterol 2017-07 Yes [id number] 2{puff} Inhale 2 Univers 90 2-07 Puffs ity of mcg/actuati 00:00: every 6 Jalen as on inhaler 00 (six) Medical hours as Branch needed for Wheezing or Shortness of Breath. QUDEXY XR 2017- Yes 150mg Take 150 Uni vers 150 mg CSpX 3-14 mg by ity of 00:00: mouth [place] 00 daily. Medical Branch Vital Signs Vital Name Observation Time Observation Value Comments Source Systolic blood 2021-08-22 17:01:00 127 mm[Hg] Univer sity of pressure [place] [facility] Diastolic blood 2021-08-22 17:01:00 87 mm[Hg] Unive rsity of pressure [place] [facility] Heart rate 2021-08-22 17:01:00 88 /min [facility] [place] [facility] Body temperature 2021-08-22 17:01:00 36.39 [place] Univ ers[facility] [place] [facility] Respiratory rate 2021-08-22 17:01:00 17 /min Univ [facility] [place] [facility] Oxygen saturation in 2021-08-22 17:01:00 88 /min University of Arterial blood by [place] [employer] [facility]addi Pulse oximetry Branch Body height 2021-08-22 15:15:00 154.9 cm [facility] [place] [facility] Body weight 2021-08-22 15:15:00 83.915 kg [facility] [place] [facility] BMI 2021-08-22 15:15:00 34.96 kg/m2 [facility] [place] [facility] Systolic blood 2020-08-18 22:50:00 129 mm[Hg] Univer sity of pressure [place] [facility] Diastolic blood 2020-08-18 22:50:00 88 mm[Hg] Unive rsity of pressure [place] [facility] Heart rate 2020-08-18 22:47:00 97 /min [facility] [place] [facility] Body temperature 2020-08-18 22:47:00 37.06 [place] Univ [facility] [place] [facility] Respiratory rate 2020-08-18 22:47:00 18 /min Univ [facility] [place] [facility] Body height 2020-08-18 22:47:00 156.2 cm [facility] [place] [facility] Body weight 2020-08-18 22:47:00 81.647 kg [facility] [place] [facility] BMI 2020-08-18 22:47:00 33.46 kg/m2 [facility] [place] [facility] Oxygen saturation in 2020-08-18 22:47:00 98 /min University of Arterial blood by [place] [employer]add[employer] Pulse oximetry Branch Systolic blood 2020-08-01 22:32:00 135 mm[Hg] Univer sity of pressure [place] [facility] Diastolic blood 2020-08-01 22:32:00 88 mm[Hg] [facility] of pressure [facility] [place] [facility] Heart rate 2020-08-01 22:32:00 97 /min [facility] Respiratory rate 2020-08-01 22:32:00 20 /min [facility] Oxygen saturation in 2020-08-01 22:32:00 97 /min [facility] Arterial blood by [facility] Pulse oximetry [place] Body temperature 2020-08-01 19:06:00 36.94 [place] [facility] Body weight 2020-08-01 19:06:00 83.915 kg [facility] BMI 2020-08-01 19:06:00 34.96 kg/m2 [facility] Procedures Procedure Date / Time Performing Clinician Source Performed [id number] CONSENT 2021-08-22 06:01:00 Doctor Unassigned, [facility] [place] [facility] REFERRAL- 2021-02-03 05:01:00 Doctor Unassigned, [facility] REQUEST/RESPONSE [place] [facility] INSURANCE CORRESPONDENCE 2021-01-20 05:01:00 Doctor Unassigned, [facility] [place] [facility] POCT GRP A STREP 2020-08-18 00:00:00 Jessica Gamboa [facility] (MOLECULAR) [facility] CT ABDOMEN PELVIS W 2020-08-01 21:00:10 Neha Nicolas [facility] CONTRAST Medical Branch LIPASE 2020-08-01 19:47:00 Neha Nicolas [facility] HEPATIC FUNCTION PANEL 2020-08-01 19:47:00 Neha Nicolas [facility] ([id number]) (ALB,T.PRO,BILI Medical [place] T,BU/BC,ALT,AST,ALK PHOS) BASIC METABOLIC PANEL 2020-08-01 19:47:00 Neha Nicolas [facility] (NA, K, CL, CO2, GLUCOSE, Medica l Branch BUN, CREATININE, CA) CBC WITH DIFF 2020-08-01 19:47:00 Neha Nicolas [facility] URINALYSIS 2020-08-01 19:47:00 Neha Nicolas [facility] POCT TEST 2020-08-01 19:47:00 Neha Nicolas [facility] NOTICE OF PRIVACY 2020-08-01 18:54:18 Doctor Austin [facility] PRACTICES [place] [facility] CONSENT/REFUSAL FOR 2020-08-01 18:51:59 Doctor Austin [facility] DIAGNOSIS AND TREATMENT [place] [facility] EXTERNAL PROVIDER RECORDS 2019-04-03 05:01:00 Doctor Austin, [facility] [place] [facility] Encounters Start End Encounter Admission Attending Care Care Encounter Source Date/Time Date/Time Type Type Clinicians Facility Department ID 2021-05-23 Emergency [facility] [id number] [facility] 2022-02-08 Outpatient KEENA Ayala RAKESH [id number] [facility] 12:00:00 12:00:00 Dee Dee 95 [facility] [place] 2022-02-01 2022-02-01 Outpatient AARON Pena [facility] RAKESH [id number] [facility] 12:00:00 12:00:00 Dee Dee 13 [facility] [place] 2021-08-22 2021-08-22 Nurse Therapy, Adc Covid Infusion [facility] [id number] Univers 09:00:00 10:00:00 Visit Kevin Lenz [id number] ity [facility] [place] [phone] [facility] 053 Branch 2021-08-22 2021-08-22 Outpatient R [facility] [id number] Univers 09:00:00 09:00:00 [id number] ity [facility] 2021-08-22 2021-08-22 Outpatient R PROMISE [facility] [id number] Univers 09:00:00 09:00:00 KEVIN rudd [facility] 2021-08-22 2021-08-22 Orders Doctor WARD 1.2.840.114 [id number] Univers 00:00:00 00:00:00 Only UnassDELON dunn [id number] [facility] 4.2.7.2.686 [place] as [phone] [address] 2021-02-10 2021-02-10 Telephone [facility] 1.2.840.114 [id number] Univers 00:00:00 00:00:00 [facility] [id number] it y of Ramesh Zeng 4.2.7.2.686 Jalen as Professio [phone] [facility] 044 [facility] One 2021-02-03 2021-02-03 Orders Doctor ED 1.2.840.114 [id number] Univers 00:00:00 00:00:00 Only Unassigned, DELON [id number] ity of [place] [facility] 4.2.7.2.686 Jalen as [phone] [address] 2021-01-20 2021-01-20 Orders Doctor ED 1.2.840.114 [id number] Univers 00:00:00 00:00:00 Only Unassigned, DELON [id number] ity of [place] [facility] 4.2.7.2.686 Jalen as [phone] [address] 2021-01-16 2021-01-16 Telephone [facility] 1.2.840.114 [id number] Univers 00:00:00 00:00:00 [facility] [id number] it y of Ramesh Zeng 4.2.7.2.686 [place] as Professio [phone] [address] One 2020-10-10 2020-10-10 Outpatient Amanda OLIVAREZ [facility] [id number] Univers 16:15:00 16:15:00 SHA [id number] ity [facility] 2020-10-10 2020-10-10 Outpatient Amanda OLIVAREZ [facility] [id number] Univers 16:15:00 16:15:00 SHA rudd [facility] 2020-10-09 2020-10-09 Outpatient Amanda OLIVAREZ [facility] [id number] Univers 08:00:00 08:00:00 SHA [id number] ity [facility] 2020-10-09 2020-10-09 Outpatient R SHER [facility] [id number] Univers 08:00:00 08:00:00 SHA ity of [facility] [place] [facility] 2020-10-09 2020-10-09 [facility] 1.2.840.114 [id number] Univers 06:48:17 07:03:17 ne Visit [facility] [id number] i ty of Ramesh Zeng 4.2.7.2.686 Jalen as Professio [phone] [address] Office [facility] One 2020-10-08 2020-10-08 [facility] 1.2.840.114 [id number] Univers 00:00:00 00:00:00 [facility] [id number] it y of Ramesh Zeng 4.2.7.2.686 [place] as Professio [phone] [address] One 2020-08-18 2020-08-18 Urgent Provider, [facility] Urgent Care [facility] 1.2.840.114 [id number] [facility] 16:18:30 17:45:28 Care Cooper [facility] [id number] ity of [place] 4.2.7.2.686 [place] as Professio [phone] [address] One 2020-08-18 2020-08-18 Outpatient [facility] [id number] Univers 17:00:00 17:00:00 [id number] ity of [facility] [place] [facility] 2020-08-18 2020-08-18 Outpatient Amanda GAMBOA [facility] [id number] Univers 17:00:00 17:00:00 JESSICA ity of [facility] [place] [facility] 2020-08-18 2020-08-18 Letter Doctor WARD 1.2.840.114 [id number] Univers 00:00:00 00:00:00 (Out) Unassigned, DELON 350.1.13.10 ity of [place] [facility] 4.2.7.2.686 [place] as [phone] [address] 2020-08-18 2020-08-18 Letter Cooper [facility] 1.2.840.114 [id number] Univers 00:00:00 00:00:00 ([facility] 350.1.13.10 [facility] y of [place] 4.2.7.2.686 [place] as Professio [phone] [address] One 2020-08-01 2020-08-[address] [facility] 1.2.840.114 [id number] Univers 13:07:00 16:40:00 Neha Azucena 350.1.13.10 i ty of [place] [phone] [facility] 084 [place] 2020-08-01 2020-08-01 Orders Doctor ED 1.2.840.114 [id number] Univers 00:00:00 00:00:00 Only Unassigned, DELON 350.1.13.10 ity of [place] [facility] 4.2.7.2.686 Jalen as [phone] [facility] 009 [place] 2020-07-13 2020-07-13 [facility] 1.2.840.114 [id number] Univers 00:00:00 00:00:00 [facility] [id number] it y of [place] 4.2.7.2.686 [place] as Professio [phone] [address] One 2020-07-01 2020-07-01 [facility] 1.2.840.114 [id number] Univers 00:00:00 00:00:00 [facility] 350.1.13.10 it y of [place] 4.2.7.2.686 [place] as Professio [phone] [address] 2020-02-20 2020-02-20 [facility] 1.2.840.114 [id number] Univers 00:00:00 00:00:00 [facility] 350.1.13.10 it y of [place] 4.2.7.2.686 [place] as Professio [phone] [address] One 2019-04-03 2019-04-03 Orders Doctor ED 1.2.840.114 [id number] Univers 00:00:00 00:00:00 Only Unassigned, DELON 350.1.13.10 ity of [place] [facility] 4.2.7.2.686 [facility] as [phone] [place] [address] Branch Results Test Description Test Time Test Comments Results Result Comments Source POCT GRP A STREP (MOLECULAR) 2020-08-18 23:02:00 Test Item Value Reference Range Interpretation Comme nts POCT GP A STREP (test code = 84455-6) negative Negative - Negat howie [facility] A[facility] PELVIS W [id number] 21:30:[address] abnormality in the abdomen or pelvis. Normal appendix. Hepatic steatosis. Status post cholecystectomy and hysterectomy. Preliminary Report Dictated by Resident: José Miguel Ríos. Feliciano Lopze MD., have reviewed this study and agree with theabove report.EXAM: CT ABDOMEN AND P SHASHANK WITH CONTRAST HISTORY: 40-year-old female with "nausea, vomiting, right lower quadrantpain". COMPARISON: None. DOSE: 497mGycm. TECHNIQUE AND FINDINGS: Contiguous axial imaging from the level of the lungbases through the pubic symphysis was performed after the uncomplicatedadministration of 120 cc of intravenous Omnipaque contrast. Coronal andsagittal reconstructions were obtained. ?Auto mA and/or iterativereconstruction were used to reduce radiation dose. FINDINGS: LOWER THORAX: The lungs bases are clear. No cardiomegaly. HEPATOBILIARY: Normal contour. Diffuse hypoattenuation of the liverparenchyma. No focal liver lesion. No intrahepatic biliary ductal dilation. ?The common bile duct is normal incaliber. Cholecystectomy. SPLEEN: No splenomegaly. PANCREAS: No ductal dilation or mass. ADRENALGLANDS: No adrenal nodule. KIDNEYS: No hydronephrosis, stone, or mass. PERITONEUM AND RETROPERITONEUM: No free air or fluid. LYMPH NODES: No enlarged lymph nodes in the abdomen or pelvis. GI TRACT: No dilation or wall thickening. Normal appendix (6:54-63). PELVIS/BLADDER: Hysterectomy. Subcentimeter structures in the bilateralovaries represent follicles. The urinary bladder is mildly distendedwithoutwall thickening. VESSELS: Unremarkable. BONES AND SOFT TISSUES: No suspicious lytic or sclerotic bony lesions. [facility], Radiant Results Inft User - 08/01/2020 3:31 PM CSTEXAM: CT ABDOMEN AND PELVIS WITH CONTRASTHISTORY: 40-year-old female with "nausea, vomiting, right lower quadrantpain".COMPARISON: None.DOSE: 497mGycm.TECHNIQUE AND FINDINGS: Contiguous axial imaging from the level of the lungbases through the pubic symphysis was performed after the uncomplicatedadministration of 120 cc of intravenous Omnipaque contrast. Coronal andsagittal reconstructions were obtained. Auto mA and/or iterativereconstruction were used to reduce radiation dose.FINDINGS:LOWER THORAX: The lungs bases are clear. No cardi omegaly.HEPATOBILIARY: Normal contour. Diffuse hypoattenuation of the liverparenchyma. No focal liver lesion.No intrahepatic biliary ductal dilation. The common bile duct is normal incaliber.Cholecystectomy.SPLEEN: No splenomegaly.PANCREAS: No ductal dilation or mass.ADRENAL GLANDS: No adrenal nodule.KIDNEYS: No hydronephrosis, stone, or mass.PERITONEUM AND RETROPERITONEUM: No free air or fluid.LYMPHNODES: No enlarged lymph nodes in the abdomen or pelvis.GI TRACT: No dilation or wall thickening. Normal appendix (6:54-63).PELVIS/BLADDER: Hysterectomy. Subcentimeter structures in the bilateralovaries represent follicles. The urinary bladder is mildly distendedwithout wall thickening.VESSELS: Unremarkable.BONES AND SOFT TISSUES: No suspicious lytic or sclerotic bony lesions.IMPRESSIONNo acute CT abnormality in the abdomen or pelvis.Normal appendix.Hepatic steatosis.Status post cholecystectomy and hysterectomy.Preliminary Report Dictated by Resident: José Miguel Ríos.I, Feliciano Mcbride MD., have reviewed this study and agree with theabove report.[facility] Met[facility] (NA, K, CL, CO2, GLUCOSE, BUN, CREATININE, CA)2020-08-01 20:21:00 Test Item Value Reference Range Interpretation Comments NA (test code = 139 mmol/L 135-145 4141893774) K (test code = 3.5 mmol/L 3.5-5 0557352048) CL (test code = 104 mmol/L 98-108 3901504743) CO2 TOTAL (test code = 26 mmol/L 23-31 3356559039) AGAP (test code = 2-16 9811844006) BUN (test code = 11 mg/dL 7-23 7331913562) GLUCOSE (test code = 127 mg/dL 70-110 H 6654507892) CREATININE (test code = 0.55 mg/dL 0.5-1.04 3445523022) CALCIUM (test code = 9.1 mg/dL 8.6-10.6 2039292728) eGFR Calculation mL/min/1.73m2 (Non-) (test code = 2428244639) eGFR Calculation mL/min/1.73m2 () (test code = 3873615688) JEREMIE (test code = JEREMIE) Association of Glomerular Filtration Rate (GFR) and Staging of Kidney Disease* + --+ --+ ------+| GFR (mL/min/1.73 m2) ?| With Kidney Damage ?| ?Without Kidney Damage+ --------+ --------+ +| ?>90 ?| ?Stage one ?| ? Normal ?+ ---+ ---+ -------+| ?60-89 ?| ?Stage two ?| ? Decreased GFR ? + --+ --+ ------+| ?30-59 ?| ?Stage three ?| ? Stage three ? + --+ --+ ------+| ?15-29 ?| ?Stage four ? | ? Stage four ?+ ---+ ---+ -------+| ?<15 (or dialysis) ? ?| ?Stage five ? | ? Stage five ?+ ---+ ---+ -------+ *Each stage assumes the associated GFR level has been in effect for at least three months. ?Stages 1 to 5, with or without kidney disease, indicate chronic kidney disease. Notes: Determination of stages one and two (with eGFR >59mL/min/1.73 m2) requires estimation of kidney damage for at least three months as defined by structural or functional abnormalities of the kidney, manifested by either:Pathological abnormalities or Markers of kidney damage (including abnormalities in the composition of the blood or urine or abnormalities in imaging tests). Lab Interpretation Abnormal (test code = 62227-3) [facility] [id number] 20:14:00 Test Item Value Reference Range Interpretation Comments APPEARANCE (test code = Clear Clear 3013614944) COLOR (test code = Yellow Yellow 4993006696) PH (test code = 4.8-8.0 2027933067) SP GRAVITY (test code = 1.003-1.030 4240845742) GLU U QUAL (test code = Normal Normal 8826154832) BLOOD (test code = 1+ Negative A 3192162730) KETONES (test code = Negative Negative 5007284888) PROTEIN (test code = Negative Negative 2887-8) UROBILIN (test code = Normal Normal 7631540041) BILIRUBIN (test code = Negative Negative 7548184348) NITRITE (test code = Negative Negative 5230539798) LEUK NII (test code = Negative Negative 6996157083) RBC/HPF (test code = See_Comment [Autom ated message] 7504271925) The system [employer] generated this result transmitted ref erence range: 0 - 3 HP F. The reference range was not used to int erpret this result as normal/abnormal . WBC/HPF (test code = See_Comment [Autom ated message] 2479848638) The system [employer] generated this result transmitted ref erence range: 0 - 5 HP F. The reference range was not used to int erpret this result as normal/abnormal . BACTERIA (test code = Negative Negative 0197437270) MUCOUS (test code = Slight Negative LPF A 2542090543) SQ EPITH (test code = HPF 1793559834) Lab Interpretation (test Abnormal code = 26913-3) [facility] (ALB, T.PRO, BILI T, BU/BC, ALT, AST, ALK PHOS)2020-08-01 20:11:00 Test Item Value Reference Range Interpretation Comments TOTAL BILI (test code = 1425888604) 0.4 mg/dL 0.1-1.1 BILI UNCON (test code = 3412224904) 0.3 mg/dL 0.1-1.1 BILI CONJ (test code = 8519198886) 0.0 mg/dL 0-0.3 T PROTEIN (test code = 7896343552) 7.4 g/dL 6.3-8.2 ALBUMIN (test code = 7294011930) 4.4 g/dL 3.5-5 ALK PHOS (test code = 1433743686) 58 U/L 34-122 ALTv (test code = 1742-6) 33 U/L 5-35 AST(SGOT) (test code = 4861533982) 27 U/L 13-40 Lab Interpretation (test code = Normal 16491-1) [facility] [id number] 20:11:00 Test Item Value Reference Range Interpretation Comments LIPASE (test code = 1983995985) 96 U/L 0-220 Lab Interpretation (test code = Normal 83556-0) [facility] Falls[facility] with [id number] 19:57:00 Test Item Value Reference Range Interpretation Comments WBC (test code = See_Comment [Automated 9290-2) message] The sy stem which generated this result transmitted reference range : 4.30 - 11.10 10*3/?L. The reference range was not used to interpret this result as normal/abnormal . RBC (test code = See_Comment [Automated 789-8) message] The sy stem which generated this result transmitted reference range : 3.93 - 5.25 10*6/?L. The reference range was not used to interpret this result as normal/abnormal . HGB (test code = 12.9 g/dL 11.6-15 718-7) HCT (test code = 37.9 % 35.7-45.2 4544-3) MCV (test code = 90.0 fL 80.6-95.5 787-2) MCH (test code = 30.6 pg 25.9-32.8 785-6) MCHC (test code = 34.0 g/dL 31.6-35.1 786-4) RDW-SD (test code = 40.2 fL 39-49.9 85391-4) RDW-CV (test code = 12.4 % 12-15.5 788-0) PLT (test code = See_Comment [Automated 777-3) message] The sy stem which generated this result transmitted reference range : 166 - 358 10*3/ ?L. The reference r roc was not used to interpret this result as normal/abnormal . MPV (test code = 8.4 fL 9.5-12.9 L 41035-4) NRBC/100 WBC (test See_Comment [Automat ed code = 6716360227) message] The system which generated this result transmitted reference range : 0.0 - 10.0 /100 WBCs. The refer ence range was not u sed to interpret th is result as normal/abnormal . NRBC x10^3 (test code <0.01 See_Comment [Auto mated = 8985064554) message] The s ystem which generated this result transmitted reference range : 10*3/?L. The reference range was not used to interpret this result as normal/abnormal . GRAN MAT (NEUT) % 68.3 % (test code = 770-8) IMM GRAN % (test code 1.00 % = 1096498854) LYMPH % (test code = 22.2 % 736-9) MONO % (test code = 5.9 % 5905-5) EOS % (test code = 2.1 % 713-8) BASO % (test code = 0.5 % 706-2) GRAN MAT x10^3(ANC) 4.99 10*3/uL 1.88-7.09 (test code = 7683917215) IMM GRAN x10^3 (test 0.07 10*3/uL 0-0.06 H code = 3554066889) LYMPH x10^3 (test code 1.62 10*3/uL 1.32-3.29 = 731-0) MONO x10^3 (test code 0.43 10*3/uL 0.33-0.92 = 742-7) EOS x10^3 (test code = 0.15 10*3/uL 0.03-0.39 711-2) BASO x10^3 (test code 0.04 10*3/uL 0.01-0.07 = 704-7) Lab Interpretation Abnormal (test code = 15313-4) [facility] [facility] [id number] 19:50:00 Test Item Value Reference Range Interpretation Comments POCT PREG (test code = 1605) Negative On board controls acceptable with Yes C Line (test code = 3574) POCT PREG LOT # (test code = 3575) [id number] POCT PREG TEST DATE (test 03/24/22 code = 3576) Lab Interpretation (test code = Normal 03224-5) [facility]
[2022-03-08] MEDS ORDERED: MORPHINE 2 MG/ML SYR ONE (11:59)
[2022-03-08] MEDS ORDERED: NA CHLORIDE 0.9% 1,000 ML ONE (11:59)
[2022-03-08] MEDS ORDERED: ONDANSETRON 4 MG/2 ML VIAL ONE (11:59)
[2022-03-08 12:26] LABS: Absolute Lymphocytes (CBC) 1.9 K/uL (0.7-4.9); Hematocrit 38.4 % (36.0-45.0); Lymphocytes % 21.4 % (15.3-44.8); MCV 89.8 fL (80-100); MPV 6.8 fL (7.6-11.3); RBC Red Blood Cell Count 4.27 M/uL (3.86-4.86)
[2022-03-08 12:28] LABS: Urine Blood 1+ (Negative); Urine Glucose Negative (Negative); Urine Protein Negative (Negative); Urine Specific Gravity >=1.030 (1.005-1.030); Urine pH 5.5 (5.0-7.0)
[2022-03-08 12:41] LABS: Albumin 3.7 g/dL (3.4-5.0); Bilirubin Total 0.4 mg/dL (0.2-1.0); Potassium 3.8 mmol/L (3.5-5.1); Protein, Total 7.6 g/dL (6.4-8.2)
--- NOTE | 2022-03-08 13:25 | RAD REPORT ---
EXAM DESCRIPTION: CT - Abdomen Pelvis W Contrast - 03/08/2022 1:11 pm CLINICAL HISTORY: Abdominal pain COMPARISON: 2018 TECHNIQUE: Computed axial tomography of the abdomen pelvis was obtained. 100 cc Isovue-300 was admin istered intravenously. Oral contrast was not requested which limits evaluation of bowel and appendix All CT scans are performed using dose optimization technique as appropriate and may include automated exposure control or mA/KV adjustment according to patient size. FINDINGS: Fatty liver. Cholecystectomy Spleen, pancreas, adrenal and kidneys appear unremarkable. There is no evidence of diverticulitis. Hysterectomy. Normal appendix 2.8 left ovarian cyst without significant free fluid IMPRESSION: 2.8 left ovarian cyst without significant free fluid
[2022-03-08] MEDS ORDERED: PROMETHAZINE INJ 25 MG/ML AMP ONE (13:49)
[2022-03-08] MEDS ORDERED: KETOROLAC 30 MG/ML INJ ONE (13:50)
--- NOTE | 2022-03-08 14:14 | ER ---
Nurse's Notes [facility] Name: Agnes Coffey Age: 41 yrs Sex: Female : 1980 Arrival Date: 03/08/2022 Time: 11:[address] Private MD: Anirudh Love B Diagnosis: Abdominal pain, unspecified Presentation: 03/08 11:39 Chief complaint: Patient states: R sided abdominal pain, N/V that started this morning. ph Coronavirus screen: Vaccine status: Patient reports receiving the 2nd dose of the covid vaccine. Ebola Screen: No symptoms or risks identified at this time. Initial Sepsis Screen: Does the patient meet any 2 criteria? No. Patient's initial sepsis screen is negative. Does the patient have a suspected source of infection? No. Patient's initial sepsis screen is negative. Risk Assessment: Do you want to hurt yourself or someone else? Patient reports no desire to harm self or others. Onset of symptoms was March 08, 2022. 11:39 Method Of Arrival: Wheelchair ph 11:39 Acuity: YUE 3 ph Triage Assessment: 11:41 General: Appears in no apparent distress. uncomfortable, Behavior is calm, cooperative, ph appropriate for age. Pain: Complains of pain in right upper quadrant and right lower quadrant. GI: Reports lower abdominal pain, nausea, vomiting. 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 - Social history:: Smoking status: Patient denies any tobacco usage or history of. Screenin:48 Abuse screen: Denies threats or abuse. Nutritional screening: No deficits noted. kr3 Tuberculosis screening: No symptoms or risk factors identified. Fall Risk IV access (20 points). Total Lin Fall Scale indicates No Risk (0-24 pts). Assessment: 13:09 Reassessment: No changes from previously documented assessment. Patient and/or family ll1 updated on plan of care and expected duration. Pain level reassessed. 13:24 Reassessment: No changes from previously documented assessment. Patient and/or family ll1 updated on plan of care and expected duration. Pain level reassessed. Patient is alert, oriented x 3, equal unlabored respirations, skin warm/dry/pink. 14:30 Reassessment: No changes from previously documented assessment. Patient and/or family kr3 updated on plan of care and expected duration. Pain level reassessed. 14:49 GI: Bowel sounds present X 4 quads. Abd is soft Abdomen is tender to palpation in right kr3 lower quadrant. Vital Signs: 11:39 BP 129 / 89; Pulse 98; Resp 18; Temp 97.2; Pulse Ox 96% on R/A; Weight 83.91 kg; Height ph 5 ft. 1 in. (154.94 cm); 14:30 BP 138 / 87; Pulse 93; Resp 18; Pulse Ox 99% on R/A; kr3 11:39 Body Mass Index 34.96 (83.91 kg, 154.94 cm) ph ED Course: 11:21 Patient arrived in ED. mr 11:21 Anirudh Love MD is Private Physician. mr 11:36 [facility]. jl9 11:36 Martin Motta DO is Attending Physician. jl9 11:38 Estefania Izaguirre RN is Primary Nurse. kr3 11:40 Triage completed. ph 11:41 Arm band placed on Patient placed in an exam room. ph 11:49 Bed in low position. Call light in reach. Side rails up X 1. kr3 11:59 Inserted saline lock: 22 gauge in left antecubital area, using aseptic technique. Blood kr3 collected. 13:05 Inserted saline lock: 22 gauge in right antecubital area, using aseptic technique. ll1 13:12 CT Abd/Pelvis - IV Contrast Only In Process Unspecified. EDMS 14:49 No provider procedures requiring assistance completed. IV discontinued, intact, kr3 bleeding controlled, No redness/swelling at site. Pressure dressing applied. Administered Medications: 12:05 Drug: Zofran (Ondansetron) 4 mg Route: IVP; Site: left antecubital; kr3 13:02 Follow up: Response: No adverse reaction kr3 12:10 Drug: morphine 2 mg Route: IVP; Infused Over: 4 mins; Site: left antecubital; kr3 13:02 Follow up: Response: No adverse reaction; RASS: Alert and Calm (0) kr3 12:15 Drug: NS 0.9% 1000 ml Route: IV; Rate: 1 bolus; Site: left antecubital; kr3 14:51 Follow up: Response: No adverse reaction; IV Status: Completed infusion kr3 13:51 Drug: Phenergan (promethazine) 12.5 mg Route: IVP; Site: right upper arm; kr3 14:47 Follow up: Response: No adverse reaction kr3 13:55 Drug: Ketorolac 30 mg Route: IVP; Site: right upper arm; kr3 14:47 Follow up: Response: No adverse reaction kr3 Medication: 14:50 VIS not applicable for this client. kr3 Outcome: 14:14 Discharge ordered by . [email or web address] 14:47 Patient left the ED. kr3 14:49 Discharged to home ambulatory. kr3 14:49 Condition: stable 14:49 Discharge instructions given to patient, Instructed on discharge instructions, follow up and referral plans. medication usage, Demonstrated understanding of instructions, follow-up care, medications, Prescriptions given X 2. Signatures: Dispatcher [employer] [facility] Cindy LedbetterYvette RN RN Alex Blevins RN RN [email or web address] Ney Mckenna9 Estefania Izaguirre RN RN kr3 Corrections: (The following items were deleted from the chart) 12:31 12:31 Inserted saline lock: 22 gauge in left antecubital area, using aseptic technique. kr3 Blood collected. kr3 14:49 14:48 Bed in low position. Call light in reach. Side rails up X 1. kr3 kr3
--- NOTE | 2022-03-08 14:15 | EDPHYS ---
Physician Documentation [facility] Name: Agnes Coffey Age: 41 yrs Sex: Female : 1980 Arrival Date: 03/08/2022 Time: 11:[address] Private MD: Anirudh Love B ED Physician Martin Motta HPI: 03/08 11:47 This 41 yrs old Female presents to ER via Wheelchair with complaints of jl9 Abdominal Pain. 11:47 The patient presents with abdominal pain right lower quadrant. Onset: The jl9 symptoms/episode began/occurred this morning. The symptoms do not radiate. Associated signs and symptoms: Pertinent positives: Pertinent negatives: nausea, vomiting, and diarrhea. The symptoms are described as crampy. Modifying factors: The symptoms are alleviated by nothing, the symptoms are aggravated by nothing. Severity of pain: in the emergency department the pain is a 5 / 10. INFORMATICS SPEC: 14:49 LMP N/A - Hysterectomy kr3 Historical: - Allergies: 11:40 Amoxicillin; ph 11:40 Ceftin; ph 11:40 oral steroids; ph - PMHx: 11:40 ACNE; Allergic rhinitis; Anxiety; incontinence.; Migraines; ph - PSHx: 11:40 Total abdominal hysterectomy; ph - Immunization history:: Adult Immunizations up to date. - Social history:: Smoking status: Patient denies any tobacco usage or history of. ROS: 11:48 Constitutional: Negative for fever, chills, and weight loss, Eyes: Negative for injury, jl9 pain, redness, and discharge, ENT: Negative for injury, pain, and discharge, Neck: Negative for injury, pain, and swelling, Cardiovascular: Negative for chest pain, palpitations, and edema, Respiratory: Negative for shortness of breath, cough, wheezing, and pleuritic chest pain. 11:48 Back: Negative for injury and pain, : Negative for injury, bleeding, discharge, and swelling, MS/Extremity: Negative for injury and deformity, Skin: Negative for injury, rash, and discoloration, Neuro: Negative for headache, weakness, numbness, tingling, and seizure, Psych: Negative for depression, anxiety, suicide ideation, homicidal ideation, and hallucinations, Allergy/Immunology: Negative for hives, rash, and allergies, Endocrine: Negative for neck swelling, polydipsia, polyuria, polyphagia, and marked weight changes, Hematologic/Lymphatic: Negative for swollen nodes, abnormal bleeding, and unusual bruising. 11:48 Abdomen/GI: Positive for abdominal pain, Negative for nausea, vomiting, and diarrhea, abdominal distension, rectal pain, rectal bleeding. Exam: 11:49 Constitutional: This is a well developed, well nourished patient who is awake, alert, jl9 and in no acute distress. Head/Face: Normocephalic, atraumatic. Eyes: Pupils equal round and reactive to light, extra-ocular motions intact. Lids and lashes normal. Conjunctiva and sclera are non-icteric and not injected. Cornea within normal limits. Periorbital areas with no swelling, redness, or edema. ENT: Mucous membranes moist. Neck: Trachea midline, no thyromegaly or masses palpated, and no cervical lymphadenopathy. Supple, full range of motion without nuchal rigidity, or vertebral point tenderness. No Meningismus. Chest/axilla: Normal chest wall appearance and motion. Nontender with no deformity. No lesions are appreciated. Cardiovascular: Regular rate and rhythm with a normal S1 and S2. No gallops, murmurs, or rubs. Normal PMI, no JVD. No pulse deficits. Respiratory: Lungs have equal breath sounds bilaterally, clear to auscultation and percussion. No rales, rhonchi or wheezes noted. No increased work of breathing, no retractions or nasal flaring. 11:49 Back: No spinal tenderness. No costovertebral tenderness. Full range of motion. Skin: Warm, dry with normal turgor. Normal color with no rashes, no lesions, and no evidence of cellulitis. MS/ Extremity: Pulses equal, no cyanosis. Neurovascular intact. Full, normal range of motion. Neuro: Awake and alert, GCS 15, oriented to person, place, time, and situation. Cranial nerves II-XII grossly intact. Motor strength 5/5 in all extremities. Sensory grossly intact. Cerebellar exam normal. Normal gait. Psych: Awake, alert, with orientation to person, place and time. Behavior, mood, and affect are within normal limits. 11:49 Abdomen/GI: Inspection: abdomen appears normal, Bowel sounds: normal, Palpation: mild abdominal tenderness, in the right lower quadrant. Vital Signs: 11:39 BP 129 / 89; Pulse 98; Resp 18; Temp 97.2; Pulse Ox 96% on R/A; Weight 83.91 kg; Height ph 5 ft. 1 in. (154.94 cm); 14:30 BP 138 / 87; Pulse 93; Resp 18; Pulse Ox 99% on R/A; kr3 11:39 Body Mass Index 34.96 (83.91 kg, 154.94 cm) ph MDM: 11:36 Patient medically screened. 9 11:49 Data reviewed: vital signs, nurses notes. jl9 14:13 Counseling: I had a detailed discussion with the patient and/or guardian regarding: the [facility] historical points, exam findings, and any diagnostic results supporting the discharge/admit diagnosis, lab results, radiology results, the need for outpatient follow up. Response to treatment: the patient's symptoms have markedly improved after treatment. 03/08 11:47 Order name: CBC with Diff; Complete Time: 12:49 [facility] 03/08 11:47 Order name: CMP; Complete Time: 12:49 [facility] 03/08 11:47 Order name: Lipase; Complete Time: 12:49 [facility] 03/08 11:47 Order name: CT Abd/Pelvis - IV Contrast Only; Complete Time: 13:27 [facility] 03/08 12:29 Order name: Urine Dipstick-Ancillary; Complete Time: 12:49 [facility] 03/08 11:47 Order name: IV Saline Lock; Complete Time: 12:30 9 03/08 11:47 Order name: Labs collected and sent; Complete Time: 12:30 [facility] 03/08 11:47 Order name: Urine Dipstick-Ancillary (obtain specimen); Complete Time: 12:30 [facility] Administered Medications: 12:05 Drug: Zofran (Ondansetron) 4 mg Route: IVP; Site: left antecubital; kr3 13:02 Follow up: Response: No adverse reaction kr3 12:10 Drug: morphine 2 mg Route: IVP; Infused Over: 4 mins; Site: left antecubital; kr3 13:02 Follow up: Response: No adverse reaction; RASS: Alert and Calm (0) kr3 12:15 Drug: NS 0.9% 1000 ml Route: IV; Rate: 1 bolus; Site: left antecubital; kr3 14:51 Follow up: Response: No adverse reaction; IV Status: Completed infusion kr3 13:51 Drug: Phenergan (promethazine) 12.5 mg Route: IVP; Site: right upper arm; kr3 14:47 Follow up: Response: No adverse reaction kr3 13:55 Drug: Ketorolac 30 mg Route: IVP; Site: right upper arm; kr3 14:47 Follow up: Response: No adverse reaction kr3 Disposition: 21:41 Co-signature as Attending Physician, Martin Motta DO I was immediately available on-site ms3 in the Emergency Department for consultation in the care of the patient.. Disposition Summary: 03/08/22 14:14 Discharge Ordered Location: Home jl9 Condition: Stable jl9 Diagnosis - Abdominal pain, unspecified jl9 Followup: jl9 - With: Private Physician - When: 1 - 2 days - Reason: Recheck today's complaints, Continuance of care, Re-evaluation by your physician Discharge Instructions: - Discharge Summary Sheet jl9 - Abdominal Pain, Adult jl9 Forms: - Medication Reconciliation Form jl9 - Thank You Letter jl9 - Antibiotic Education jl9 - Prescription Opioid Use jl9 - Work release form kr3 Prescriptions: - ketorolac 10 mg Oral tablet - take 1 tablet by ORAL route every 6 hours As needed not to exceed 40 mg in jl9 24hrs; 12 tablet; Refills: 0, Product Selection Permitted - ondansetron 8 mg Oral tablet,disintegrating - take 1 tablet by ORAL route every 8 hours As needed; 20 tablet; Refills: 0, jl9 Product Selection Permitted Signatures: Dispatcher [employer] Yvette Szymanski, RN Martin Howard ph, DO DO ms3 Ney Mckenna jl9 Estefania Izaguirre RN RN kr3
[2022-03-08 15:58] VITALS: TEMP 97.2
[2022-03-08 16:01] VITALS: BP 138/87; O2SAT 99
== END 2022-03-08 14:47 | disposition home or self-care (01) ==
LOC: ER 11:19
DX: R10.31 Right lower quadrant pain (principal); Z88.1 Allergy status to other antibiotic agents; Z88.8 Allergy status to other drugs, medicaments and biological substances
CPT/HCPCS: 85025; 36415; 81003; 83690; 80053; 74177; Q9967; J2550; J2270; J7030; J2405; 99284